=== PATIENT | male | born 1945 | race Caucasian/White ===

== ENCOUNTER → 2017-04-15 | Outpatient (CLI) | payer OTHER, BC | LOC: LAB 12:33 | PROVIDERS: ATTEND Urology | DX: C61 Malignant neoplasm of prostate (principal) | CPT/HCPCS: 36415; 84153 ==

== ENCOUNTER → 2017-04-28 | Outpatient (CLI) | payer OTHER, BC ==
[2017-04-28 16:36] LABS: HEMOGLOBIN A1C 4.61 % (4.2-6.0)
[2017-04-28 16:41] LABS: BASOPHILS # (AUTO) 0.04 10*3/UL; BASOPHILS % (AUTO) 0.6 % (0-1); EOSINOPHILS # (AUTO) 0.09 10*3/UL; EOSINOPHILS % (AUTO) 1.4 % (0-8); HEMATOCRIT 42.4 % (42.0-52.0); HEMOGLOBIN 14.4 g/dL (14.0-18.0); LYMPHOCYTES # (AUTO) 1.14 10*3/uL; MEAN CORPUSCULAR HEMOGLOBIN 32.1 PG (27-31); MEAN CORPUSCULAR VOLUME 94.6 FL (80-90); MEAN PLATELET VOLUME 10.1 FL (7.4-12.2); MONOCYTES # (AUTO) 0.43 10*3/UL (0.3-0.8); MONOCYTES % (AUTO) 6.7 % (5-15); NEUTROPHILS # (AUTO) 4.69 10*3/UL; NEUTROPHILS % (AUTO) 72.8 % (50-80); RED BLOOD COUNT 4.48 10^6/uL (4.70-6.10)
[2017-04-28 17:19] LABS: PLATELET MORPHOLOGY COMMENT NORMAL MORPHOLOGY (NORM); RBC MORPHOLOGY COMMENT NORMAL MORPHOLOGY (NORM); WBC MORPHOLOGY COMMENT NORMAL MORPHOLOGY (NORM)
[2017-04-28 18:05] LABS: CHOL/HDL RATIO 3.53 RATIO (0-4.0); LDL CHOLESTEROL,CALCULATED 75.6 mg/dL
[2017-04-28 18:06] LABS: BUN/CREATININE RATIO 21.25 (6-20); CALCIUM 8.8 mg/dL (8.7-10.7); SERUM ALBUMIN 3.8 g/dL (3.5-4.8)
[2017-04-30 14:31] LABS: ALB PEP SER 3.1 g/dL (3.4-4.7); ALP1 GLOB 0.3 g/dL (0.1-0.3); GAMMA GLOBS 1.3 g/dL (0.6-1.6)
== END ==
LOC: MOB LAB 15:23
PROVIDERS: ATTEND Internal Medicine
DX: G60.9 Hereditary and idiopathic neuropathy, unspecified (principal); M54.17 Radiculopathy, lumbosacral region; I25.10 Atherosclerotic heart disease of native coronary artery without angina pectoris; C61 Malignant neoplasm of prostate; I10 Essential (primary) hypertension; N52.9 Male erectile dysfunction, unspecified; R53.1 Weakness; Z79.899 Other long term (current) drug therapy
CPT/HCPCS: 36415; 80053; 80061; 82607; 82746; 83036; 83921; 84155; 84165; 84443; 84550; 85025; 85652; 86038; 86431